=== PATIENT | female | born 1975 | race African-American/Black ===

== ENCOUNTER 2018-08-22 07:04 | Day surgery (SDC) | payer OTHER ==
[~2018-08-22] VITALS: Ht 162.6 cm; Wt 65.3 kg
[2018-08-22] MEDS ORDERED: METOPROLOL (08:39)
[2018-08-22] MEDS ORDERED: OMEPRAZOLE (08:39)
[2018-08-22 08:41] VITALS: Ht 162.6 cm; Wt 65.3 kg
[2018-08-22] MEDS ORDERED: ALBUTEROL (08:44)
--- NOTE | 2018-08-22 09:29 | PREAC ---
Date/Time of Note Date/Time of Note DATE: 08/22/18 TIME: 09: Anesthesia Eval and Record Evaluation Time Pre-Procedure Interview DATE: 08/22/18 TIME: : Age 43 Sex female NPO: 8 hrs Preoperative diagnosis abdomianl pain, change in bowel habits Planned procedure EGD, colonoscopy Past Medical History Past Medical History: Includes Cardio: HTN Pulm: Asthma GI: Other (ulcerative colitis and history of colon polyps) Surgery & Anesthesia Issues No known issue Meds Anticoagulation: No Beta Vera within 24 hr: Yes Reason Beta Vera not given: Bradycarida, Hypotension Reported Medications [Albuterol] No Conflict Check 08/22/18 [Omeprazole] No Conflict Check 08/22/18 [Metoprolol] No Conflict Check 08/22/18 Meds reviewed: Yes Allergies Coded Allergies: tramadol (Verified Allergy, Severe, VOMITING BLOOD, 08/22/18) Allergies Reviewed: Yes Labs/Studies Labs Reviewed: Reviewed by anesthesiologist test: N/A Pre-procedure Exam Airway: Adequate mouth opening, Adequate thyromental dist Mallampati: Mallampati II Teeth: Normal Lung: Normal Heart: Normal ASA Physical Status ASA physical status: 2 Emergency: None Planned Anesthetic General/MAC: Mask Planned Pain Management Parenteral pain med Pre-operative Attestations Prior to commencing anesthesia and surgery, the patient was re-evaluated, there was verification of: *The patient's identity *The results of appropriate recent lab work and preoperative vital signs *The above evaluation not changing prior to induction *Anesthetic plan, risk benefits, alternative and complications discussed with patient/family; questions answered; patient/family understands, accepts and wishes to proceed. VEE LIGHT MD August 22, 2018 09:29
[2018-08-22] MEDS ORDERED: LIDOCAINE 2% (SDV) 5 ML INJ ONE (09:33)
[2018-08-22] MEDS ORDERED: PROPOFOL 40 ML ONE (09:33)
[2018-08-22 09:49] VITALS: BP 114/73; PULSE 52; RESP 18
[2018-08-22] MEDS ORDERED: PROPOFOL 20 ML ONE ×4 (10:39)
[2018-08-22] MEDS ORDERED: PHENYLephrine (100 MCG/ML) 10ML SYG ONE (10:54)
[2018-08-22 10:57] VITALS: BP 114/58; PULSE 71; RESP 20
[2018-08-22] MEDS ORDERED: ONDANSETRON 4 MG INJ IV PRN (11:00)
[2018-08-22 11:02] VITALS: BP 111/62; PULSE 76
--- NOTE | 2018-08-22 11:03 | PAC ---
Date/Time of Note Date/Time of Note DATE: 08/22/18 TIME: 11:02 Post-Anesthesia Notes Post-Anesthesia Note Last documented vital signs Vital Signs Date Temp Pulse Resp B/P (MAP) Pulse Ox O2 O2 Flow FiO2 Time Delivery Rate 08/22/18 98.0 52 18 114/73 100 Room Air 09:49 (87) Activity: WNL Respiratory function: WNL Cardiovascular function: WNL Mental status: Baseline Pain reasonably controlled: Yes Hydration appropriate: Yes Nausea/Vomiting absent: Yes Comments BP: 114/58 HR: 79 RR: 15 T: 98 SaO2: 100% VEE LIGHT MD August 22, 2018 11:03
[2018-08-22 11:07] VITALS: BP 104/61; RESP 18
[2018-08-22 11:17] VITALS: BP 116/79; RESP 20
== END 2018-08-22 11:57 | disposition home or self-care (01) ==
LOC: GIL 07:04
PROVIDERS: ATTEND Internal Medicine Gastroenterology
DX: R19.4 Change in bowel habit (principal); Z86.010 Personal history of colon polyps; K64.8 Other hemorrhoids; K21.9 Gastro-esophageal reflux disease without esophagitis; I10 Essential (primary) hypertension; J45.909 Unspecified asthma, uncomplicated
CPT/HCPCS: 43239; 45378; 88305; 88312; J2370; Z7610